=== PATIENT | male | born 1985 | race African-American/Black ===

== ENCOUNTER 2018-03-10 17:56 | Emergency (ER) | payer SELFPAY ==
[2018-03-10] MEDS ORDERED: SODIUM CHLORIDE 0.9% 1,000 ML IV ONE (19:20)
[2018-03-10] MEDS ORDERED: FAMOTIDINE 20MG/2ML VIAL IV STA (19:20)
[2018-03-10 20:18] LABS: BASOPHILS % 0.7 % (0.0-2.0); HEMATOCRIT. 43.3 % (42.0-52.0); HEMOGLOBIN. 14.7 g/dL (14.0-18.0); LYMPHOCYTES % 40.9 % (20.0-50.0); MEAN CORPUSCULAR HEMOGLOBIN 31.4 pg (28.0-32.0); MEAN CORPUSCULAR VOLUME 92.4 fL (80.0-94.0); MONOCYTES % 16.8 % (2.0-8.0); NEUTROPHILS % 38.6 % (40.0-76.0); PLATELET 191 x1000/uL (130-400); RED BLOOD CELL COUNT 4.68 mill/uL (4.7-6.1); RED CELL DISTRIBUTION WIDTH 13.5 % (11.6-14.6)
[2018-03-10 20:23] LABS: CLARITY URINE CLEAR (CLEAR); COLOR URINE YELLOW (YELLOW); KETONES URINE TRACE (NEGATIVE); LEUKOCYTE ESTERASE URINE NEGATIVE (NEGATIVE); NITRITE URINE NEGATIVE (NEGATIVE); OCCULT BLOOD URINE TRACE (NEGATIVE); PROTEIN URINE NEGATIVE (NEGATIVE); UROBILINOGEN URINE 0.2 E.U./dL (0.2-1.0)
[2018-03-10 20:25] LABS: PROTHROMBIN TIME 9.7 sec (9.1-11.1)
[2018-03-10 23:00] VITALS: BP 138/78
[2018-03-10 23:15] LABS: CHLORIDE 107 mEq/L (98-107)
[2018-03-10 23:20] LABS: ETHANOL BLOOD 14 mg/dL
== END 2018-03-11 07:00 | disposition home or self-care (01) ==
LOC: ER 03-11 06:40
DX: K21.9 Gastro-esophageal reflux disease without esophagitis (principal); K59.00 Constipation, unspecified
CPT/HCPCS: 36415; 74176; 80053; 81003; 83690; 84484; 85025; 85610; 96374; 99284; G0482; J3490; J7030; J7040